=== PATIENT | female | born 1950 | race Hispanic/Latino ===

== ENCOUNTER 2018-03-17 19:18 | Inpatient (IN) | payer MEDICARE ==
[~2018-03-17] VITALS: Ht 157.5 cm; Wt 95.7 kg
[~2018-03-17 19:18] MED LIST: ASPIRIN EC81 MG PO; BRINTELLIX PO; CARAFATE1 GM/10 ML PO; CITALOPRAM HBR20 MG PO; FERROUS SULFAT325 MG PO; FOLIC ACID1 MG PO; FUROSEMIDE20 MG PO; FUROSEMIDE40 MG PO; LACTULOSE20 GM/30 M PO; LEVEMIR100 UNIT/1 SC; MECLIZINE HCL12.5 MG PO; METOCLOPRAMIDE10 MG PO; METOPROLOL TAR100 MG PO; METRONIDAZOLE500 MG PO; MIDODRINE HCL2.5 MG PO; MIRTAZAPINE15 MG PO; MYCOPHENOLATE250 MG PO; NEBUPENT300 MG INH; NORCO 10MG-325MG1 EA PO; NOVOLOG MI100 UNIT/1 SC; PANTOPRAZOLE SO40 MG PO; PROGRAF0.5 MG PO; PROGRAF1 MG PO; PROPRANOLOL HCL10 MG PO; SERTRALINE HCL50 MG PO; SPIRONOLACTONE25 MG PO; SUCRALFATE1 GM PO; ULTRAM 50MG50 MG PO; ULTRAM50 MG PO; URSODIOL300 MG PO; XIFAXAN550 MG PO
[2018-03-17 20:09] LABS: BASOPHILS % 0.6 % (0.0-1.0); EOSINOPHILS # (AUTO) 0.1 (0.0-0.4); EOSINOPHILS % 2.6 % (0.0-6.0); HEMATOCRIT 30.9 % (34.2-44.1); HEMOGLOBIN 10.2 g/dL (12.0-16.0); LYMPHOCYTES # (AUTO) 0.8 (1.0-3.2); LYMPHOCYTES % 14.8 % (18.0-39.1); MEAN CORPUSCULAR HEMOGLOBIN 29.2 pg (28-32); MEAN CORPUSCULAR VOLUME 88.5 fL (81-99); MONOCYTES # (AUTO) 0.4 (0.2-0.8); MONOCYTES % 7.5 % (4.4-11.3); NEUTROPHILS # (AUTO) 3.9 (2.1-6.9); NEUTROPHILS % 73.9 % (38.7-80.0); PLATELET COUNT 191 x10e3/uL (140-360); RED BLOOD COUNT 3.49 x10e6/uL (3.6-5.1); RED CELL DISTRIBUTION WIDTH 13.3 % (11.7-14.4)
[2018-03-17 20:27] LABS: ALANINE AMINOTRANSFERASE 27 IU/L (0-55); ALBUMIN 3.4 g/dL (3.5-5.0); ALKALINE PHOSPHATASE 86 IU/L (40-150); ANION GAP 16.3 mmol/L (8-16); BLOOD UREA NITROGEN 20 mg/dL (7-26); BUN/CREATININE RATIO 11 (6-25); CALCIUM 9.5 mg/dL (8.4-10.2); CARBON DIOXIDE 21 mmol/L (22-29); CHLORIDE 106 mmol/L (98-107); CREATINE KINASE 61 IU/L (29-168); EST GLOMERULAR FILTRATION RATE 27 ML/MIN (60-); GLUCOSE 247 mg/dL (74-118); SODIUM 138 mmol/L (136-145)
[2018-03-17 20:28] LABS: POTASSIUM 5.3 mmol/L (3.5-5.1)
--- NOTE | 2018-03-17 20:45 | Diagnostic Imaging Report ---
Portable chest x-ray INDICATION: Mid chest pain radiating to left side COMPARISON: Chest x-ray 10/23/16 FINDINGS: Frontal view of the chest obtained at 2012 hours. The cardiac silhouette is top normal in size. The aorta is ectatic. The pulmonary vascular markings are normal. The lungs demonstrate no mass or infiltrate. Mild eventration of the right diaphragm is stable. The costophrenic angles are sharp. There is no pneumothorax. The osseous structures are intact and normal in morphology. IMPRESSION: No acute cardiopulmonary process. Signed by: Dr. Rohith Yang MD on 03/17/2018 8:42 PM
[2018-03-17 20:51] LABS: INR 1.17
[2018-03-17 20:52] LABS: PARTIAL THROMBOPLASTIN TIME 29.7 seconds (23.8-35.5)
[2018-03-17] MEDS ORDERED: ONDANSETRON HCL INJ 2 MG/ML VIAL IV PRN (21:30)
[2018-03-17] MEDS: FAMOTIDINE 20 MG/2 ML VIAL IV SCH (21:30)
[2018-03-17] MEDS ORDERED: DEXTROSE 50% SYRINGE 50 ML IV PRN (21:30)
[2018-03-17 23:04] VITALS: BP 120/56
[2018-03-17] MEDS: SODIUM CHLORIDE 0.9% 1000ML 1,000 ML IV SCH (23:13)
[2018-03-17] MEDS ORDERED: CALCIUM CITRAT500 GM (23:52)
[2018-03-17] MEDS ORDERED: FAMOTIDINE20 MG PO (23:53)
[2018-03-17] MEDS ORDERED: PRAVASTATIN SOD20 MG (23:54)
[2018-03-17] MEDS ORDERED: GABAPENTIN100 MG (23:54)
[2018-03-18] VITALS (7 sets, daily range): BP systolic 98–133; BP diastolic 51–64
[2018-03-18 05:23] LABS: CHOL/HDL RATIO 3.6 (3.0-3.6)
[2018-03-18 05:33] LABS: CREATINE KINASE MB 0.4 ng/mL (0-5.0)
[2018-03-18] MEDS: INSULIN REGULAR, HUMAN 100 UNIT/1 ML 3ML VIAL SQ SCH ×4 (08:31→20:51)
[2018-03-18] MEDS: SODIUM CHLORIDE 0.9% 1000ML 1,000 ML IV SCH (08:35)
[2018-03-18] MEDS: FAMOTIDINE 20 MG/2 ML VIAL IV SCH (08:35)
[2018-03-18] MEDS ORDERED: ASPIRIN 81 MG ENTERIC COATED PO SCH (09:00)
[2018-03-18] MEDS ORDERED: HYDROCODONE/APAP 10MG-325MG TAB PO PRN ×2 (10:15→10:30)
[2018-03-18] MEDS ORDERED: PENTAMIDINE ISETHIONATE 300 MG INH SCH ×2 (10:15→10:30)
[2018-03-18] MEDS: TACROLIMUS 1 MG CAP PO SCH ×2 (10:15→20:51)
--- NOTE | 2018-03-18 10:49 | History and Physical ---
She is a 67-year-old female patient who had liver transplantation. She presented to the emergency room with complaint of chest pain. HISTORY OF PRESENT ILLNESS: Ms. Nithya Loyola is a 67-year-old female patient with a previous history of diabetes mellitus, hypertension, hyperlipidemia, chronic kidney disease, esophageal varices and lupus nephropathy, who had a liver transplantation in June 2016. She presented with complaint of sharp retrosternal chest pain. The patient denies any pain radiating to the back. The patient denies having shortness of breath. PAST MEDICAL HISTORY: Diabetes mellitus, CKD, esophageal varices, liver transplantation. SURGICAL HISTORY: Liver transplant and colon resection. ALLERGIES: THE PATIENT IS ALLERGIC TO REGLAN AND METRONIDAZOLE. MEDICATIONS: See from the list. SOCIAL HISTORY: The patient is a former smoker and denies using alcohol. REVIEW OF SYSTEMS: Chest pain and rib pain. FAMILY HISTORY: Hypertension, diabetes mellitus and coronary artery disease. PHYSICAL EXAMINATION GENERAL: She is an elderly, female patient lying in bed, not in any acute distress. VITAL SIGNS: Temperature 98, pulse rate 80 and regular, respiratory rate 18, blood pressure 110/70. HEENT: Normocephalic, atraumatic. NECK: Supple. No lymphadenopathy. LUNGS: Bilateral equal fair air entry with no rales and no rhonchi. HEART: S1 and S2, regular. A systolic murmur is present. ABDOMEN: Soft. Bowel sounds are present. NEUROLOGIC: Nonfocal. No neurologic deficit. ADMISSION IMPRESSION AND DIAGNOSES 1. Atypical chest pain in a high-risk patient with liver transplantation. 2. Hyperkalemia. 3. Chronic kidney disease. 4. Diabetes mellitus. 5. Hypertension. 6. Obesity. 7. Hyperkalemia and renal insufficiency. PLAN: The patient will be admitted with the above diagnoses. Will do serial EKGs and cardiac enzymes. Also, cardiology consultation with Dr. Baldwin. We will monitor the patient's potassium. Job#: [id number]
--- NOTE | 2018-03-18 13:33 | Consultation ---
DATE OF CONSULTATION: March 18, 2018 REQUESTING PHYSICIAN: Dr. Melissa Aragon REASON FOR CONSULTATION: Chest pain. HISTORY OF PRESENT ILLNESS: Ms. Loyola is a 67-year-old lady with past medical history as listed below, presented with complaints of chest pain. Patient states that she has been having chest pain for the last couple of days. States it is in the middle of the chest, lasts for about 5 minutes or so, nonradiating, recorded a few times. No shortness of breath or diaphoresis. She feels better now. She has had a liver transplant a couple of years back. REVIEW OF SYSTEMS CONSTITUTIONAL: Has some fatigue and weakness. HEENT: No headache, blurry vision, seizures, syncope. CARDIOVASCULAR: Had chest pain. No dyspnea, orthopnea, PND. RESPIRATORY: No cough, fever or expectoration. GI: No abdominal pain, vomiting or diarrhea. : No dysuria, frequency, incontinence. ALLERGIES: REGLAN AND METRONIDAZOLE. MEDICATIONS: See list. PAST MEDICAL HISTORY 1. History of liver transplant 2 years back apparently for a fatty liver. 2. History of diabetes mellitus. 3. History of chronic kidney disease. 4. History of esophageal varices. 5. History of having had a colostomy which was reversed. SOCIAL HISTORY: She used to smoke in the past, has quit smoking. Does not drink alcohol. FAMILY HISTORY: There is family history of hypertension and diabetes. PAST SURGICAL HISTORY: History of liver transplant 2 years back, history of colon resection and colostomy which was reversed. PHYSICAL EXAMINATION: Obese lady, alert, oriented, not in any obvious distress. VITAL SIGNS: Heart rate is 62, blood pressure is 126/57, respiratory rate 18, temperature is 97.2. HEENT: Atraumatic. NECK: No JVD, bruit, thyromegaly or lymphadenopathy. CARDIOVASCULAR: First and second heart sounds heard. No murmurs, rubs or gallops appreciated. CHEST: Decreased air entry at the bases. No adventitious sounds are appreciated. ABDOMEN: Soft, distended. Surgical scar. EXTREMITIES: Trace edema. LABORATORY DATA: WBC is 5.3, hemoglobin 10.2, hematocrit 30.9, platelets are 191. Sodium is 138, potassium 5.2, chloride 106, bicarb is 21, BUN is 20, creatinine 1.9, glucose 184. AST 37, ALT 27, alkaline phos is 86. Total bili is 0.7. Troponin 0.01 and less than 0.001. Albumin is 3.4. Globulin is 3.4. Cholesterol is 142, LDL is 75, HDL is 40. EKG shows sinus rhythm at 68 beats per minute. Right bundle branch block. Left-carvajal axis LVH, secondary ST-T changes. CHEST X-RAY: Shows no acute cardiopulmonary process. IMPRESSION 1. Chest pain. 2. History of liver transplantation. 3. History of esophageal varices. 4. History of diabetes mellitus. 5. Obesity. 6. Chronic kidney disease. PLAN 1. The patient is currently chest pain free. 2. Cardiac enzymes are normal. 3. Get echocardiogram to assess LV function and valvular function. 4. Continue with current medications. Patient is also on some diuretics. She has some leg edema. 5. Patient can get a stress test as an outpatient. Discussed my impression, plan of management with patient and she understands. As always I appreciate and thank you very much for this referral. Job#: [id number] GREG
[2018-03-18 13:52] LABS: ANION GAP 13.4 mmol/L (8-16); CALCIUM 9.9 mg/dL (8.4-10.2); CREATININE, SERUM 1.87 mg/dL (0.57-1.11); POTASSIUM 5.4 mmol/L (3.5-5.1)
[2018-03-18 14:00] LABS: CREATINE KINASE MB 0.6 ng/mL (0-5.0)
[2018-03-18] MEDS ORDERED: SOD POLYSTYRENE SULFONATE SUSP 15 GM/60 ML BTL PO ONE (16:00)
[2018-03-18] MEDS ORDERED: NON-FORMULARY MEDICATION (Metoprolol Tartrate 100 MG) PO SCH (17:00)
[2018-03-18] MEDS: METOPROLOL TARTRATE 50 MG TAB PO SCH (17:10)
[2018-03-18] MEDS: FUROSEMIDE 40 MG TAB PO SCH (17:10)
[2018-03-18] MEDS: URSODIOL 300 MG CAP PO SCH (17:10)
[2018-03-18] MEDS: MYCOPHENOLATE MOFETIL 250 MG CAP PO SCH (17:10)
[2018-03-18] MEDS: GABAPENTIN 100 MG CAP PO SCH (17:11)
[2018-03-18] MEDS: PANTOPRAZOLE SOD 40 MG TABEC PO SCH (17:11)
[2018-03-18] MEDS: MIRTAZAPINE 15 MG TAB PO SCH (20:50)
[2018-03-18] MEDS: PRAVASTATIN 20 MG TAB PO SCH (20:50)
[2018-03-19] VITALS (7 sets, daily range): BP systolic 100–134; BP diastolic 52–68
[2018-03-19] MEDS: SODIUM CHLORIDE 0.9% 1000ML 1,000 ML IV SCH (00:51)
[2018-03-19 05:36] LABS: BASOPHILS % 0.2 % (0.0-1.0); EOSINOPHILS # (AUTO) 0.1 (0.0-0.4); EOSINOPHILS % 0.9 % (0.0-6.0); HEMATOCRIT 31.9 % (34.2-44.1); HEMOGLOBIN 10.9 g/dL (12.0-16.0); LYMPHOCYTES # (AUTO) 0.4 (1.0-3.2); MEAN CORPUSCULAR HEMOGLOBIN 29.4 pg (28-32); MEAN CORPUSCULAR HGB CONC 34.2 g/dL (31-35); MONOCYTES # (AUTO) 0.5 (0.2-0.8); MONOCYTES % 5.3 % (4.4-11.3); NEUTROPHILS % 89.3 % (38.7-80.0); PLATELET COUNT 149 x10e3/uL (140-360); RED BLOOD COUNT 3.71 x10e6/uL (3.6-5.1); RED CELL DISTRIBUTION WIDTH 13.3 % (11.7-14.4)
[2018-03-19 05:55] LABS: ALBUMIN 3.4 g/dL (3.5-5.0); ANION GAP 13.8 mmol/L (8-16); CALCIUM 9.8 mg/dL (8.4-10.2); CREATININE, SERUM 1.92 mg/dL (0.57-1.11); POTASSIUM 4.8 mmol/L (3.5-5.1)
[2018-03-19 06:44] LABS: LYMPHOCYTES % (MANUAL) 6 % (19-48); MONOCYTES % (MANUAL) 6 % (3.4-9.0); NEUTROPHILS % (MANUAL) 88 % (40-74); RBC MORPHOLOGY COMMENT NORMAL
[2018-03-19 06:45] LABS: PLATELET ESTIMATE ADEQUATE; PLATELET MORPHOLOGY COMMENT NORMAL
[2018-03-19] MEDS: INSULIN REGULAR, HUMAN 100 UNIT/1 ML 3ML VIAL SQ SCH ×4 (08:40→21:59)
[2018-03-19] MEDS: PANTOPRAZOLE SOD 40 MG TABEC PO SCH ×2 (08:50→16:38)
[2018-03-19] MEDS: ASPIRIN 81 MG ENTERIC COATED PO SCH (08:50)
[2018-03-19] MEDS: URSODIOL 300 MG CAP PO SCH ×2 (08:50→16:38)
[2018-03-19] MEDS: MYCOPHENOLATE MOFETIL 250 MG CAP PO SCH ×2 (08:50→16:38)
[2018-03-19] MEDS: GABAPENTIN 100 MG CAP PO SCH ×2 (08:50→16:38)
[2018-03-19] MEDS: CITALOPRAM HYDROBROMIDE 20 MG TAB PO SCH (08:50)
[2018-03-19] MEDS: FUROSEMIDE 40 MG TAB PO SCH ×2 (08:50→16:38)
[2018-03-19] MEDS: FAMOTIDINE 20 MG TAB PO SCH (08:50)
[2018-03-19] MEDS: INSULIN DETEMIR 100 UNIT/ML PEN SQ SCH (08:50)
[2018-03-19] MEDS: METOPROLOL TARTRATE 50 MG TAB PO SCH ×2 (08:50→16:38)
[2018-03-19] MEDS ORDERED: NON-FORMULARY MEDICATION (Insulin Detemir (Levemir) 30 UNITS) SC SCH (09:00)
[2018-03-19] MEDS: TACROLIMUS 1 MG CAP PO SCH ×2 (09:22→22:02)
[2018-03-19] MEDS: CEFTRIAXONE SOD 1 GM VIAL IV SCH (16:00)
[2018-03-19] MEDS: PRAVASTATIN 20 MG TAB PO SCH (21:55)
[2018-03-19] MEDS: MIRTAZAPINE 15 MG TAB PO SCH (21:55)
[2018-03-20] VITALS (8 sets, daily range): BP systolic 92–135; BP diastolic 49–62
[2018-03-20] MEDS: SODIUM CHLORIDE 0.9% 1000ML 1,000 ML IV SCH ×2 (06:00→16:42)
--- NOTE | 2018-03-20 07:18 | Diagnostic Imaging Report ---
EXAM: CHEST 2 VIEWS, PA and lateral INDICATION: Fever COMPARISON: AP view of the chest March 17, 2018 FINDINGS: LINES/TUBES: None LUNGS: No consolidations or edema. PLEURA: No effusions or pneumothorax. HEART AND MEDIASTINUM: Normal size and contour. BONES AND SOFT TISSUES: No acute findings. IMPRESSION: No consolidative pneumonia Signed by: Dr. Luisana Kowalski M.D. on 03/20/2018 7:15 AM
[2018-03-20 07:40] LABS: BASOPHILS % 0.2 % (0.0-1.0); EOSINOPHILS # (AUTO) 0.2 (0.0-0.4); EOSINOPHILS % 3.3 % (0.0-6.0); HEMATOCRIT 29.3 % (34.2-44.1); HEMOGLOBIN 9.9 g/dL (12.0-16.0); LYMPHOCYTES % 16.3 % (18.0-39.1); MEAN CORPUSCULAR HEMOGLOBIN 29.5 pg (28-32); MEAN CORPUSCULAR HGB CONC 33.8 g/dL (31-35); MEAN CORPUSCULAR VOLUME 87.2 fL (81-99); MONOCYTES # (AUTO) 0.5 (0.2-0.8); MONOCYTES % 8.6 % (4.4-11.3); NEUTROPHILS # (AUTO) 4.2 (2.1-6.9); NEUTROPHILS % 71.4 % (38.7-80.0); PLATELET COUNT 153 x10e3/uL (140-360); RED BLOOD COUNT 3.36 x10e6/uL (3.6-5.1); RED CELL DISTRIBUTION WIDTH 13.3 % (11.7-14.4)
[2018-03-20] MEDS: INSULIN REGULAR, HUMAN 100 UNIT/1 ML 3ML VIAL SQ SCH ×4 (08:00→20:25)
[2018-03-20 08:04] LABS: ALBUMIN 3.3 g/dL (3.5-5.0); ALBUMIN/GLOBULIN RATIO 0.9 (0.8-2.0); CALCIUM 9.4 mg/dL (8.4-10.2); CREATININE, SERUM 2.17 mg/dL (0.57-1.11)
[2018-03-20] MEDS: ASPIRIN 81 MG ENTERIC COATED PO SCH (08:59)
[2018-03-20] MEDS: CITALOPRAM HYDROBROMIDE 20 MG TAB PO SCH (08:59)
[2018-03-20] MEDS: METOPROLOL TARTRATE 50 MG TAB PO SCH ×2 (09:00→16:54)
[2018-03-20] MEDS: FAMOTIDINE 20 MG TAB PO SCH (09:00)
[2018-03-20] MEDS: PANTOPRAZOLE SOD 40 MG TABEC PO SCH ×2 (09:00→16:53)
[2018-03-20] MEDS: GABAPENTIN 100 MG CAP PO SCH ×2 (09:00→16:53)
[2018-03-20] MEDS: FUROSEMIDE 40 MG TAB PO SCH ×2 (09:00→17:00)
[2018-03-20] MEDS: TACROLIMUS 1 MG CAP PO SCH ×2 (09:00→21:22)
[2018-03-20] MEDS: MYCOPHENOLATE MOFETIL 250 MG CAP PO SCH ×2 (09:00→16:53)
[2018-03-20] MEDS: INSULIN DETEMIR 100 UNIT/ML PEN SQ SCH (09:00)
[2018-03-20] MEDS: URSODIOL 300 MG CAP PO SCH ×3 (12:20→20:24)
[2018-03-20] MEDS: CEFTRIAXONE SOD 1 GM VIAL IV SCH (16:00)
[2018-03-20] MEDS: PRAVASTATIN 20 MG TAB PO SCH (20:24)
[2018-03-20] MEDS: MIRTAZAPINE 15 MG TAB PO SCH (20:24)
[2018-03-21] VITALS: BP 110/53
[2018-03-21] MEDS: SODIUM CHLORIDE 0.9% 1000ML 1,000 ML IV SCH (02:24)
[2018-03-21 04:00] VITALS: BP 97/48
[2018-03-21 05:16] LABS: BASOPHILS % 0.3 % (0.0-1.0); EOSINOPHILS # (AUTO) 0.2 (0.0-0.4); EOSINOPHILS % 2.9 % (0.0-6.0); HEMATOCRIT 30.2 % (34.2-44.1); HEMOGLOBIN 10.3 g/dL (12.0-16.0); LYMPHOCYTES # (AUTO) 1.1 (1.0-3.2); LYMPHOCYTES % 15.8 % (18.0-39.1); MEAN CORPUSCULAR HEMOGLOBIN 29.6 pg (28-32); MEAN CORPUSCULAR HGB CONC 34.1 g/dL (31-35); MEAN CORPUSCULAR VOLUME 86.8 fL (81-99); MONOCYTES # (AUTO) 0.6 (0.2-0.8); MONOCYTES % 8.9 % (4.4-11.3); NEUTROPHILS % 71.8 % (38.7-80.0); PLATELET COUNT 185 x10e3/uL (140-360); RED BLOOD COUNT 3.48 x10e6/uL (3.6-5.1); RED CELL DISTRIBUTION WIDTH 13.2 % (11.7-14.4)
[2018-03-21 05:45] LABS: ALBUMIN 3.5 g/dL (3.5-5.0); ANION GAP 14.4 mmol/L (8-16); CALCIUM 8.9 mg/dL (8.4-10.2); CREATININE, SERUM 2.15 mg/dL (0.57-1.11); POTASSIUM 4.4 mmol/L (3.5-5.1)
[2018-03-21] MEDS: INSULIN REGULAR, HUMAN 100 UNIT/1 ML 3ML VIAL SQ SCH ×2 (07:30→11:30)
[2018-03-21 08:00] VITALS: BP 97/48
[2018-03-21] MEDS: INSULIN DETEMIR 100 UNIT/ML PEN SQ SCH (08:28)
[2018-03-21] MEDS: ASPIRIN 81 MG ENTERIC COATED PO SCH (09:00)
[2018-03-21] MEDS: URSODIOL 300 MG CAP PO SCH (09:00)
[2018-03-21] MEDS: CITALOPRAM HYDROBROMIDE 20 MG TAB PO SCH (09:00)
[2018-03-21] MEDS: METOPROLOL TARTRATE 50 MG TAB PO SCH (09:00)
[2018-03-21] MEDS: FUROSEMIDE 40 MG TAB PO SCH (09:00)
[2018-03-21] MEDS: GABAPENTIN 100 MG CAP PO SCH (09:00)
[2018-03-21] MEDS: FAMOTIDINE 20 MG TAB PO SCH (09:00)
[2018-03-21] MEDS: PANTOPRAZOLE SOD 40 MG TABEC PO SCH (09:00)
[2018-03-21] MEDS: MYCOPHENOLATE MOFETIL 250 MG CAP PO SCH (09:00)
[2018-03-21 09:36] VITALS: BP 94/52
[2018-03-21] MEDS ORDERED: FUROSEMIDE40 MG PO (09:54)
[2018-03-21] MEDS ORDERED: METOPROLOL TART50 MG PO (09:54)
[2018-03-21] MEDS: TACROLIMUS 1 MG CAP PO SCH (10:15)
[2018-03-21 12:47] VITALS: BP 119/58
--- NOTE | 2018-03-21 16:01 | Discharge Summary ---
She is a 67-year-old patient of mine. She presented with a complaint of chest pain, hyperkalemia, renal failure, diabetes mellitus, hypertension, obesity, renal insufficiency and liver transplant and immunosuppressed. The patient on immunosuppressive medicine for transplant. HOSPITAL COURSE SUMMARY: The patient was admitted with the above diagnoses. MD was ruled out by serial EKGs and cardiac enzymes. Cardiology consultation with Dr. Baldwin was called. For hyperkalemia, the patient was treated with potassium oxylate and IV fluids. The patient developed fever during hospital course. Blood and urine cultures were obtained. Chest x-ray was obtained, which was negative for any known pathogens. The patient was given IV antibiotics as the patient was immunosuppressed. The patient's cultures came back negative. . The patient will be discharged home and will follow up in the office. KARSON SAUNDERS MD Job#: [id number]
--- NOTE | 2018-03-21 16:05 | Discharge Summary ---
ADDENDUM TO DISCHARGE SUMMARY The patient is hypotensive. Her blood pressure is 90/60. We will decrease the metoprolol and Lasix, metoprolol to 50 b.i.d. from 100 and Lasix to 40 mg once a day. Also, the patient needs an outpatient stress test. KARSON SAUNDERS MD Job#: [id number]
== END 2018-03-21 13:14 | disposition home or self-care (01) | DRG 442 ==
LOC: ER 19:18 → ERHOLD 21:33 → IMCU 22:25 → OBSVTOIN 03-19 15:16 → MED/SURG2 03-19 17:36
PROVIDERS: ADMIT Internal Medicine; ATTEND Internal Medicine
DX: T86.49 Other complications of liver transplant (principal); I85.00 Esophageal varices without bleeding; E11.22 Type 2 diabetes mellitus with diabetic chronic kidney disease; I12.9 Hypertensive chronic kidney disease with stage 1 through stage 4 chronic kidney disease, or unspecified chronic kidney disease; N18.9 Chronic kidney disease, unspecified; Z87.891 Personal history of nicotine dependence; Z79.4 Long term (current) use of insulin; E87.5 Hyperkalemia; E66.9 Obesity, unspecified; Z68.36 Body mass index [BMI] 36.0-36.9, adult; M32.14 Glomerular disease in systemic lupus erythematosus; I95.9 Hypotension, unspecified; Z79.899 Other long term (current) drug therapy; D89.9 Disorder involving the immune mechanism, unspecified; R07.89 Other chest pain
CPT/HCPCS: 36415; 71045; 71046; 80048; 80053; 80061; 82550; 82553; 82948; 84484; 85025; 85610; 85730; 87040; 87086; 93005; 99284; G0378; J0696; J7030; J7507

== ENCOUNTER → 2019-02-22 | Outpatient (CLI) | payer MEDICARE ==
[~2019-02-22] MED LIST changes: +CALCIUM CITRAT500 GM; +FAMOTIDINE20 MG PO; +GABAPENTIN100 MG; +METOPROLOL TART50 MG PO; +PRAVASTATIN SOD20 MG
--- NOTE | 2019-02-22 17:32 | Diagnostic Imaging Report ---
Frontal and lateral views of the chest. HISTORY: Acute bronchitis versus pneumonia COMPARISON: Chest radiographs March 20, 2018 DISCUSSION: Lungs: Prominence of the peribronchial interstitial markings. No evidence of a consolidative pneumonia or pulmonary alveolar edema. Pleura: No pleural effusion or pneumothorax. Heart and mediastinum: The cardiomediastinal silhouette appears unremarkable. Bones and soft tissues: Appear unremarkable. IMPRESSION: 1. Findings compatible with the provided history of acute bronchitis. 2. No consolidative pneumonia. Signed by: Dr. Norman Jack D.O., M.M.M. on 02/22/2019 5:28 PM
== END ==
LOC: RAD 16:32
PROVIDERS: ATTEND Internal Medicine
DX: J20.8 Acute bronchitis due to other specified organisms (principal)
CPT/HCPCS: 71046